=== PATIENT | female | born 1970 | race Caucasian/White ===

== ENCOUNTER 2022-05-03 10:58 | Day surgery (SDC) | payer BC ==
--- NOTE | 2022-05-03 10:22 | HP ---
DATE OF SURGERY: 05/03/2022 HISTORY OF PRESENT ILLNESS: The patient is a 52-year-old who is in need of screening colonoscopy. The patient has occasional flare ups of internal hemorrhoids, intermittent prolapse, aches and bleeding at times but not every day. No change in bowel movements. No abdominal pain. Family history negative for colon cancer. PAST MEDICAL HISTORY: Asthma. Mitral valve prolapse. Reflux disease. PAST SURGICAL HISTORY: section. Ovarian cyst. T&A. Foot surgery for bone spur on the right in the past. MEDICATIONS: Flonase, cetirizine, phentermine. ALLERGIES: NKDA. FAMILY HISTORY: Chronic obstructive pulmonary disease, diabetes, hypertension. Negative for colon cancer. SOCIAL HISTORY: No smoking. She does drink some wine. REVIEW OF SYSTEMS: Fourteen systems reviewed. No chest pain or palpitations. Other systems negative or noncontributory as above and per preadmission questionnaire. PHYSICAL EXAMINATION: BMI 30. GENERAL: No acute distress. HEENT: Sclerae nonicteric. NECK: No JVD. CHEST: Clear to auscultation. CVS: Regular rate and rhythm. ABDOMEN: Soft. No peritoneal signs. EXTREMITIES: No significant edema. NEURO: Alert, oriented, moving extremities symmetrically. RECTAL: Deferred timed to endoscopy exam. PSYCH: Appropriate mood and affect. SKIN: Dry. IMPRESSION: Need for screening colonoscopy as she had intermittent prolapse and possible internal hemorrhoid banding as she had failed to control that with medical management. General risk of bleeding or infection, risk of bowel injury or perforation, risk of missed or nondiagnosis or incomplete exam possibly requiring barium enema, other studies or procedures, general risk of anesthesia or sedation, risk of bowel prep but not limited to, consent obtained. Possibility if she does have internal hemorrhoids that warrant internal hemorrhoid banding, general risk of bleeding or infection, aches, pain or pressure. Remote risk of major infection possibly requiring major procedure, drainage or diversion. Possibility of progression of hemorrhoid disease possibly requiring other procedures down the road but not limited to. General risk of bleeding. Consent obtained. Will proceed with outpatient screening colonoscopy. Will proceed with screening colonoscopy, possible internal hemorrhoid banding as an outpatient.
[2022-05-03] MEDS ORDERED: Lactated Ringers 1,000 ML IV SCH (11:00)
[2022-05-03] MEDS ORDERED: Xylocaine-Mpf 2% 5 Ml Vial ONE (13:34)
[2022-05-03] MEDS ORDERED: DIPRIVAN 200 MG/20 ML IV ONE ×3 (13:35→14:03)
[2022-05-03] MEDS ORDERED: ULTRAM 50 MG PO ONE (15:17)
[2022-05-03 15:22] VITALS: O2SAT 99
[2022-05-03 15:43] VITALS: BP 126/79; PULSE 71
--- NOTE | 2022-05-04 08:44 | OP ---
SURGERY DATE/TIME: 05/03/2022 2758 PREOPERATIVE DIAGNOSES: 1) Need for screening colonoscopy. 2) History of some intermittent prolapsing, occasionally bleeding internal hemorrhoids. POSTOPERATIVE DIAGNOSES: 1) ASA Class II. 2) Mild diverticulosis left colon. 3) Small early polyp versus hyperplastic lesion sigmoid and rectum. 4) Grade 2 to almost 3 internal and external hemorrhoids. 5) Withdrawal time approximately 9 minutes. 6) Very tortuous colon. PROCEDURES: 1) Colonoscopy to cecum. 2) Hot biopsy polypectomy sigmoid colon polyp. 3) Hot biopsy polypectomy small early rectal polyp versus hyperplastic lesion. 4) Internal hemorrhoid banding x3 columns. SURGEON: Dr. Mario Ospina. ANESTHESIA: MAC. ESTIMATED BLOOD LOSS: Minimal. INDICATIONS: As noted above. Risks and benefits explained in detail but not limited to and consent obtained. DESCRIPTION OF PROCEDURE AND FINDINGS: The patient is taken to the endoscopy room. MAC anesthesia induced. After official time out and no disagreement with planned procedure, digital rectal exam did not reveal any rectal masses. She did have some internal and external hemorrhoids. Video colonoscope inserted and passed up the tortuous sigmoid, descending, transverse, ascending colon. With positioning on her back and two people pushing on the abdomen, the scope did reach the cecum. Appendiceal orifice and ileocecal valve well visualized and photo documented. Pre overall was good. There was a little bit of liquidy stool limiting the right colon. It was suctioned irrigated clear just slightly limiting exam otherwise overall good prep. The scope was carefully withdrawn over the next 9 minutes. No signs of any large polyps, masses or any other obstructing lesions. She did have some mild diverticulosis left colon. There was a small polyp in the sigmoid colon that was smooth about 2 mm removed with hot biopsy polypectomy. Another 1.5 mm to 2 mm polyp in the rectum, early polyp versus hyperplastic lesion removed with hot biopsy polypectomy. Good hemostasis was noted. Once this was completed, she inquired about possible hemorrhoid banding. It was felt that her hemorrhoids were grade 2 almost grade 3 internal and external hemorrhoids. Half-ayala retractor carefully inserted. Hemorrhoid band fired on the left lateral position. A good tuft of tissue noted at top edge of hemorrhoid, this was then repeated in the right posterior position. The right anterior was a little bit smaller but a good tuft of tissue was noted at the top edge of the hemorrhoid, hemorrhoid band fired. Good hemostasis noted. The patient tolerated the procedure well. Findings discussed with the family out in the waiting area. Continue a high fiber diet, avoid straining at the time of bowel movements, titrate soft bulky stools. Use sitz baths PRN for any aches or pains or Tylenol for aches and pains.
== END 2022-05-03 15:50 | disposition home or self-care (01) ==
LOC: SDC 10:58
PROVIDERS: ATTEND Surgery
DX: Z12.11 Encounter for screening for malignant neoplasm of colon (principal); Z87.19 Personal history of other diseases of the digestive system; K57.30 Diverticulosis of large intestine without perforation or abscess without bleeding; K63.5 Polyp of colon; K64.4 Residual hemorrhoidal skin tags; K64.8 Other hemorrhoids
CPT/HCPCS: 81025; J2704; A9270-GY

== ENCOUNTER 2022-06-16 10:42 | Emergency (ER) | payer BC ==
[2022-06-16] MEDS ORDERED: Hydromorphone 1 mg/ml Injection IV ONE (10:50)
[2022-06-16] MEDS ORDERED: BENADRYL 50 MG/ML IV ONE (10:50)
[2022-06-16] MEDS ORDERED: Sodium Chloride 0.9% 1000 ML 1,000 ML IV STA (10:50)
[2022-06-16 10:52] VITALS: BP 150/101
[2022-06-16] MEDS ORDERED: Sodium Chloride 0.9% 1000 ML 1,000 ML ONE (10:55)
[2022-06-16] MEDS ORDERED: Hydromorphone 1 mg/ml Injection ONE (10:55)
[2022-06-16] MEDS ORDERED: BENADRYL 50 MG/ML ONE (10:55)
[2022-06-16 11:10] LABS: BASOPHIL % 0.7 % (0.0-0.4); IMMATURE GRAN # 0.03 x10^3u/L (0.00-0.03); Red Cell Distribution Width 13.4 % (11.5-14.0)
--- NOTE | 2022-06-16 11:18 | ERPHSYRPT ---
- History of Present Illness Time Seen by Provider: 06/16/22 10:47 Source: patient Exam Limitations: no limitations Patient Subjective Stated Complaint: Abdominal pain Triage Nursing Assessment: Patient brought back to ED per w/c crying out in pain . Patient A+O X 3. Patient's skin pale and diaphoretic. Patient complains of sharp pain to right lower abdomen 10/10. 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 Patient complains of nausea. Abdomen soft and round with BS X 4. Physician History: Patient here with sudden onset of right lower quadrant pain. 10 out of 10. Radiates into the rest of her abdomen. No falls or trauma. Patient states that she has been sick for a few days. Acutely got worse this morning. She has not tried thing to make it better or worse. Patient states that she still has her periods. Although she does not believe she is . Timing/Duration: today Severity: moderate Allergies/Adverse Reactions: meloxicam Adverse Reaction (Mild, Verified 06/16/22 10:46) Rash Home Medications: Cetirizine HCl [All Day Allergy Relief] 1 cap PO DAILY 04/30/22 [History] Fluticasone Propionate [Flonase Allergy Relief] 2 sprays INTRANASAL BID 04/30/22 [History] Phentermine HCl 1 tab PO DAILY 04/30/22 [History] Hx Influenza Vaccination/Date Given: No Hx Pneumococcal Vaccination/Date Given: No Immunizations Up to Date: Yes Travel Risk - International Travel Have you traveled outside of the country in past 3 weeks: No - Coronavirus Screening Are you exhibiting any of the following symptoms?: No Close contact with a COVID-19 positive Pt in past 14-21 Days: No - Vaccine Status Have you recieved a Covid-19 vaccination: Yes 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: [email or web address] - Vaccination Dates Date of 2cond Vaccination (if applicable): na - Review of Systems Constitutional: No Fever, No Chills Eyes: No Symptoms Ears, Nose, & Throat: No Symptoms Respiratory: No Cough, No Dyspnea Cardiac: No Chest Pain, No Edema, No Syncope Abdominal/Gastrointestinal: Abdominal Pain, No Nausea, No Vomiting, No Diarrhea Genitourinary Symptoms: No Dysuria Musculoskeletal: No Back Pain, No Neck Pain Skin: No Rash Neurological: No Dizziness, No Focal Weakness, No Sensory Changes Psychological: No Symptoms Endocrine: No Symptoms All Other Systems: Reviewed and Negative - Past Medical History Neurological History: No Pertinent History ENT History: No Pertinent History Cardiac History: Other Respiratory History: Asthma Endocrine Medical History: No Pertinent History Musculoskeletal History: No Pertinent History GI Medical History: No Pertinent History History: No Pertinent History Psycho-Social History: No Pertinent History Female Reproductive Disorders: No Pertinent History Other Medical History: mitral valve prolapse - Past Surgical History Past Surgical History: Yes Neuro Surgical History: No Pertinent History Cardiac: No Pertinent History Respiratory: No Pertinent History Musculoskeletal: Other Female Surgical History: Section, Other Other Surgical History: ovarian cyst, bone spur. - Social History Smoking Status: Never smoker Exposure to second hand smoke: No Drug Use: none Patient Lives Alone: No - Nursing Vital Signs Nursing Vital Signs: Initial Vital Signs Temperature 97.6 F 06/16/22 10:47 Pulse Rate 65 06/16/22 10:47 Respiratory Rate 18 06/16/22 10:47 Blood Pressure 150/101 06/16/22 10:47 O2 Sat by Pulse Oximetry 100 06/16/22 10:47 Pain Scale Pain Intensity 10 - Physical Exam General Appearance: no apparent distress, alert Eye Exam: PERRL/EOMI, eyes nml inspection Ears, Nose, Throat Exam: normal ENT inspection, TMs normal, pharynx normal, moist mucous membranes Neck Exam: normal inspection, non-tender, supple, full range of motion Respiratory Exam: normal breath sounds, lungs clear, No respiratory distress Cardiovascular Exam: regular rate/rhythm, normal heart sounds, normal peripheral pulses Gastrointestinal/Abdomen Exam: soft, tenderness (Right lower quadrant tenderness without rebound or guarding), No mass Back Exam: normal inspection, normal range of motion, No CVA tenderness, No v ertebral tenderness Extremity Exam: normal inspection, normal range of motion, pelvis stable Neurologic Exam: alert, oriented x 3, cooperative, normal mood/affect, nml cerebellar function, nml station & gait, sensation nml, No motor deficits Skin Exam: normal color, warm, dry, No rash Lymphatic Exam: No adenopathy SpO2: 100 - Course Nursing assessment & vital signs reviewed: Yes Ordered Tests: Active Orders 24 hr Category Date Time Status IV Insertion STAT Care 06/16/22 10:50 Active ABDOMEN AND PELVIS W CONTRAST [CT] Stat Exams 06/16/22 10:51 Completed CBC W DIFF Stat Lab 06/16/22 11:09 Completed CMP Stat Lab 06/16/22 Completed CULTURE,URINE Stat Lab 06/16/22 12:30 Received HCG QUALITATIVE,SERUM Stat Lab 06/16/22 11:09 Completed LIPASE Stat Lab 06/16/22 11:09 Completed UA W/RFX UR CULTURE Stat Lab 06/16/22 12:30 Completed Medication Summary Discontinued Medications Generic Name Dose Route Start Last Admin Trade Name Junior PRN Reason Stop Dose Admin Diphenhydramine HCl 25 mg 06/16/22 10:50 06/16/22 10:58 Diphenhydramine Hcl 50 Mg/Ml Vial IV 06/16/22 10:51 25 mg STAT ONE Administration Diphenhydramine HCl Confirm 06/16/22 10:55 Diphenhydramine Hcl 50 Mg/Ml Vial Administered 06/16/22 10:56 Dose 50 mg .ROUTE .STK-MED ONE Droperidol 1.25 mg 06/16/22 10:50 06/16/22 10:58 Droperidol 5 Mg/2 Ml Vial IV 06/16/22 10:51 1.25 mg STAT ONE Administration Droperidol Confirm 06/16/22 10:55 Droperidol 5 Mg/2 Ml Vial Administered 06/16/22 10:56 Dose 5 mg .ROUTE .STK-MED ONE Fentanyl Citrate 100 mcg 06/16/22 12:30 06/16/22 12:42 Fentanyl Citrate 100 Mcg/2 Ml* Vial IV 06/16/22 12:31 100 mcg STAT ONE Administration Fentanyl Citrate Confirm 06/16/22 12:41 Fentanyl Citrate 100 Mcg/2 Ml* Vial Administered 06/16/22 12:42 Dose 100 mcg .ROUTE .STK-MED ONE Hydromorphone HCl 1 mg 06/16/22 10:50 06/16/22 10:58 Hydromorphone 1 Mg/1ml Inj 1 Mg/Ml Syringe IV 06/16/22 10:51 1 mg STAT ONE Administration Hydromorphone HCl Confirm 06/16/22 10:55 Hydromorphone 1 Mg/1ml Inj 1 Mg/Ml Syringe Administered 06/16/22 10:56 Dose 1 mg .ROUTE .STK-MED ONE Sodium Chloride 1,000 mls @ 999 mls/hr 06/16/22 10:50 06/16/22 12:04 Sodium Chloride 0.9% 1000 Ml IV 06/16/22 11:50 Infused .Q1H1M STA Infusion Sodium Chloride Confirm 06/16/22 10:55 Sodium Chloride 0.9% 1000 Ml Administered 06/16/22 10:56 Dose 1,000 mls @ ud .ROUTE .STK-MED ONE Ketorolac Tromethamine 30 mg 06/16/22 12:43 06/16/22 12:46 Ketorolac Tromethamine 30 Mg/Ml Inj IV 06/16/22 12:44 30 mg STAT ONE Administration Ketorolac Tromethamine Confirm 06/16/22 12:46 Ketorolac Tromethamine 30 Mg/Ml Inj Administered 06/16/22 12:47 Dose 30 mg .ROUTE .STK-MED ONE Lab/Rad Data: Laboratory Result Diagrams 06/16/22 11:09 06/16/22 Unknown Laboratory Results 06/16/22 06/16/22 06/16/22 Range/Units Unknown 12:30 11:09 WBC (4.0-10.5) x10^3/uL RBC (4.1-5.4) x10^6/uL Hgb (12.0-16.0) g/dL Hct (35-47) % MCV (78-100) fL MCH (26-32) pg MCHC (32-36) g/dL RDW (11.5-14.0) % Plt Count (150-450) x10^3/uL MPV (7.5-11.0) fL Gran % (36.0-66.0) % Immature Gran % (Auto) (0.00-0.4) % Nucleat RBC Rel Count (0.00-0.1) % Eos # (Auto) (0-0.5) x10^3/uL Immature Gran # (Auto) (0.00-0.03) x10^3u/L Absolute Lymphs (auto) (1.0-4.6) x10^3/uL Absolute Monos (auto) (0.0-1.3) x10^3/uL Absolute Nucleated RBC (0.00-0.01) x10^3u/L Lymphocytes % (24.0-44.0) % Monocytes % (0.0-12.0) % Eosinophils % (0.00-5.0) % Basophils % (0.0-0.4) % Absolute Granulocytes (1.4-6.9) x10^3/uL Basophils # (0-0.4) x10^3/uL Sodium 139 (137-145) mmol/L Potassium 3.9 (3.5-5.1) mmol/L Chloride 108 H (98-107) mmol/L Carbon Dioxide 20 L (22-30) mmol/L Anion Gap 14.8 (5-15) MEQ/L BUN 16 (7-17) mg/dL Creatinine 1.02 (0.52-1.04) mg/dL Estimated GFR > 60.0 ML/MIN Glucose 114 H (74-106) mg/dL Calcium 8.8 (8.4-10.2) mg/dL Total Bilirubin 0.40 (0.2-1.3) mg/dL AST 29 (14-36) U/L ALT 20 (0-35) U/L Alkaline Phosphatase 54 (38-126) U/L Serum Total Protein 6.4 (6.3-8.2) g/dL Albumin 3.9 (3.5-5.0) g/dL Lipase (23-300) U/L Serum , Qual NEGATIVE (Negative) Urine Color Yellow (Yellow) Urine Appearance Clear (Clear) Urine pH 6.5 (4.6-8.0) Ur Specific [place] 1.020 (1.005-1.030) Urine Protein Negative (Negative) Urine Glucose (UA) Negative (Negative) mg/dL Urine Ketones 15 A (Negative) Urine Blood Negative (Negative) Urine Nitrite Negative (Negative) Urine Bilirubin Negative (Negative) Urine Urobilinogen 0.2 (0.2) mg/dL Ur Leukocyte Esterase Trace A (Negative) U Hyaline Cast (Auto) NONE SEEN (0-2) /LPF Urine Microscopic RBC 0-2 (0-5) /HPF Urine Microscopic WBC 11-20 A (0-5) /HPF Ur Epithelial Cells None Seen (None Seen) /HPF Urine Bacteria None Seen (None Seen) /HPF Urine Culture Reflexed YES (NO) 06/16/22 06/16/22 Range/Units 11:09 11:09 WBC 10.2 (4.0-10.5) x10^3/uL RBC 4.04 L (4.1-5.4) x10^6/uL Hgb 11.3 L (12.0-16.0) g/dL Hct 36.3 (35-47) % MCV 89.9 (78-100) fL MCH 28.0 (26-32) pg MCHC 31.1 L (32-36) g/dL RDW 13.4 (11.5-14.0) % Plt Count 330 (150-450) x10^3/uL MPV 9.5 (7.5-11.0) fL Gran % 70.6 H (36.0-66.0) % Immature Gran % (Auto) 0.3 (0.00-0.4) % Nucleat RBC Rel Count 0.0 (0.00-0.1) % Eos # (Auto) 0.13 (0-0.5) x10^3/uL Immature Gran # (Auto) 0.03 (0.00-0.03) x10^3u/L Absolute Lymphs (auto) 2.07 (1.0-4.6) x10^3/uL Absolute Monos (auto) 0.69 (0.0-1.3) x10^3/uL Absolute Nucleated RBC 0.00 (0.00-0.01) x10^3u/L Lymphocytes % 20.3 L (24.0-44.0) % Monocytes % 6.8 (0.0-12.0) % Eosinophils % 1.3 (0.00-5.0) % Basophils % 0.7 (0.0-0.4) % Absolute Granulocytes 7.20 H (1.4-6.9) x10^3/uL Basophils # 0.07 (0-0.4) x10^3/uL Sodium (137-145) mmol/L Potassium (3.5-5.1) mmol/L Chloride (98-107) mmol/L Carbon Dioxide (22-30) mmol/L Anion Gap (5-15) MEQ/L BUN (7-17) mg/dL Creatinine (0.52-1.04) mg/dL Estimated GFR ML/MIN Glucose (74-106) mg/dL Calcium (8.4-10.2) mg/dL Total Bilirubin (0.2-1.3) mg/dL AST (14-36) U/L ALT (0-35) U/L Alkaline Phosphatase (38-126) U/L Serum Total Protein (6.3-8.2) g/dL Albumin (3.5-5.0) g/dL Lipase 136 (23-300) U/L Serum , Qual (Negative) Urine Color (Yellow) Urine Appearance (Clear) Urine pH (4.6-8.0) Ur Specific [place] (1.005-1.030) Urine Protein (Negative) Urine Glucose (UA) (Negative) mg/dL Urine Ketones (Negative) Urine Blood (Negative) Urine Nitrite (Negative) Urine Bilirubin (Negative) Urine Urobilinogen (0.2) mg/dL Ur Leukocyte Esterase (Negative) U Hyaline Cast (Auto) (0-2) /LPF Urine Microscopic RBC (0-5) /HPF Urine Microscopic WBC (0-5) /HPF Ur Epithelial Cells (None Seen) /HPF Urine Bacteria (None Seen) /HPF Urine Culture Reflexed (NO) - Progress Progress: improved Progress Note: 06/16/22 11:17 differential diagnosis includes kidney stone, compression fracture, infection, UTI, triple AAA - basic labs including: CBC, lipase, CMP, UA, UPT - insert IV for fluids, pain meds, nausea control - consider imaging: CT ab/pelvis 06/16/22 13:36 Patient feels improved with medication. Patient is not . CT scan demonstrates kidney stone 3 to 4 mm right UVJ. Consistent with patient's pain. We did discuss over the phone with urology at [facility], NERY Murphy. She stated that given patient has no UTI, pain improved, no VEE, patient could follow-up as an outpatient. Patient is making urine. No fever here. No signs of pyelonephritis or other infection. We will discharge patient home at this point in time. Patient will need to return here sooner for new or changing symptoms. Otherwise follow-up as described on Flomax, Toradol, Zofran, Flexeril. Counseled pt/family regarding: lab results, diagnosis, need for follow-up, rad results - Departure Departure Disposition: Home Clinical Impression: Kidney stone Condition: Stable Critical Care Time: No Referrals: REINTJES,FABIANA, SHEET TESTER [Primary Care Provider] - Follow up/PCP as directed Instructions: Severe Abdominal Pain, Adult (DC) Additional Instructions: Call for urology appointment early next week. Return here sooner for new or changing symptoms. We spoke with NERY Gonzalez about your case [facility] [address] [place] [address] [place] [id number] Prescriptions: Ondansetron ODT 4 MG [Zofran Odt 4 mg] 4 mg PO Q6H PRN PRN #10 tablet PRN Reason: Vomiting Cyclobenzaprine HCl 10 mg [Flexeril 10 MG] 10 mg PO TID #12 tablet Tamsulosin HCl 0.4 mg [Flomax 0.4 MG] 0 mg PO DAILY 10 Days #10 cap Ketorolac Trometh 10 mg Tab [TORAdol 10 MG TABLET] 10 mg PO TID PRN 7 Days #8 tablet PRN Reason: Pain
[2022-06-16 11:42] LABS: Hematocrit 36.3 % (35-47); Hemoglobin 11.3 g/dL (12.0-16.0); Red Blood Count 4.04 x10^6/uL (4.1-5.4); White Blood Count 10.2 x10^3/uL (4.0-10.5)
[2022-06-16 11:43] LABS: Eosinophil % 1.3 % (0.00-5.0); Lymphocytes % 20.3 % (24.0-44.0); Mean Cell Volume 89.9 fL (78-100); Mean Corpuscular Hgb Concent. 31.1 g/dL (32-36); Mean Platelet Volume 9.5 fL (7.5-11.0); Monocytes % 6.8 % (0.0-12.0); Neutrophil % 70.6 % (36.0-66.0); Platelet Count 330 x10^3/uL (150-450)
[2022-06-16 11:44] LABS: Basophil (Absolute #) 0.07 x10^3/uL (0-0.4); Eosinophil (Absolute #) 0.13 x10^3/uL (0-0.5); IMMATURE GRAN % 0.3 % (0.00-0.4); Lymphocyte (Absolute #) 2.07 x10^3/uL (1.0-4.6); Monocyte (Absolute #) 0.69 x10^3/uL (0.0-1.3)
[2022-06-16] MEDS ORDERED: SUBLIMAZE 100 MCG/2 ML IV ONE (12:30)
--- NOTE | 2022-06-16 12:35 | XRAY ---
Indication: Right upper quadrant pain. Multiple contiguous axial images obtained through the abdomen and pelvis using 80 cc Isovue 370 contrast. Comparison: None Lung bases demonstrates minimal dependent atelectasis and a few right infrahilar/right middle lobe calcified granulomas. Heart is not enlarged. Noncontrasted stomach and bowel loops appear nonobstructed with normal appendix. Mild diffuse scattered fecal debris. No free fluid/air. 3-4 mm right UVJ calculus. Right ureter is prominent up to 1 cm along with mild hydronephrosis, dense right nephrogram, and tiny perinephric fluid favoring obstructive uropathy. Remaining over, gallbladder, pancreas, spleen, adrenal glands, left kidney, left ureter, bladder, uterus, and aorta are unremarkable. No pathologic retroperitoneal lymphadenopathy. Osseous structures intact with mild levoscoliosis centered at L3. Impression: 1. 3-4 mm right UVJ calculus producing obstructive uropathy as detailed. 2. Incidental mild diffuse fecal stasis and old granulomatous disease. 3. Remaining CT abdomen/pelvis with contrast exam is negative.
[2022-06-16 12:40] LABS: ALBUMIN 3.9 g/dL (3.5-5.0); ALKALINE PHOSPHATASE 54 U/L (38-126); ANION GAP 14.8 MEQ/L (5-15); BLOOD UREA NITROGEN 16 mg/dL (7-17); CHLORIDE 108 mmol/L (98-107); Calcium 8.8 mg/dL (8.4-10.2); Carbon Dioxide 20 mmol/L (22-30); Creatinine 1 1.02 mg/dL (0.52-1.04); EST GLOMERULAR FILTRATION RATE > 60.0 ML/MIN; Glucose 114 mg/dL (74-106); Potassium 3.9 mmol/L (3.5-5.1); SGOT/AST 29 U/L (14-36); SGPT/ALT 20 U/L (0-35); SODIUM 139 mmol/L (137-145); Total Protein 6.4 g/dL (6.3-8.2)
[2022-06-16] MEDS ORDERED: SUBLIMAZE 100 MCG/2 ML ONE (12:41)
[2022-06-16] MEDS ORDERED: TORAdol 30 mg Injection IV ONE (12:43)
[2022-06-16 12:44] LABS: Appearance Clear (Clear); Bacteria None Seen /HPF (None Seen); Bilirubin Negative (Negative); Blood Negative (Negative); Epithelial Cells None Seen /HPF (None Seen); Glucose, Urine Negative (Negative); Hyaline Casts NONE SEEN /LPF (0-2); Ketones 15 (Negative); Leukocyte Esterase Trace (Negative); Nitrite Negative (Negative); Ph 6.5 (4.6-8.0); Protein,Urine Dip Negative (Negative); RBC 0-2 /HPF (0-5); Urobilinogen 0.2 mg/dL (0.2)
[2022-06-16 12:46] LABS: ADD URINE CULTURE? YES (NO)
[2022-06-16] MEDS ORDERED: TORAdol 30 mg Injection ONE (12:46)
[2022-06-16 13:37] VITALS: PULSE 88
[2022-06-16 13:38] VITALS: O2SAT 100
== END 2022-06-16 13:43 | disposition home or self-care (01) ==
LOC: ED 10:42
DX: N13.2 Hydronephrosis with renal and ureteral calculous obstruction (principal); R10.31 Right lower quadrant pain; Z79.899 Other long term (current) drug therapy
CPT/HCPCS: 36000; 36415; 74177; 80053; 81001; 83690; 84703; 85025; 87077; 87086; 87186; 96360; 96374; 96375; 99284; J1170; J1200; J1885; J3010

== ENCOUNTER 2023-03-25 16:20 | Emergency (ER) | payer BC ==
[2023-03-25 16:45] VITALS: TEMP 98.5
[2023-03-25] MEDS ORDERED: Sodium Chloride 0.9% 1000 ML 1,000 ML IV STA ×2 (17:01→19:20)
[2023-03-25] MEDS ORDERED: Hydromorphone 1 mg/ml Injection IV ONE (17:01)
[2023-03-25] MEDS ORDERED: Reglan 10 MG/2 ML IV ONE (17:01)
[2023-03-25] MEDS ORDERED: Reglan 10 MG/2 ML ONE (17:07)
[2023-03-25] MEDS ORDERED: Hydromorphone 1 mg/ml Injection ONE (17:07)
[2023-03-25] MEDS ORDERED: Sodium Chloride 0.9% 1000 ML 1,000 ML ONE ×2 (17:07→19:21)
[2023-03-25 17:25] LABS: Absolute Neutrophil Ct (ANC) 10.12 x10^3/uL (1.4-6.9); BASOPHIL % 0.4 % (0.0-0.4); Basophil (Absolute #) 0.05 x10^3/uL (0-0.4); Eosinophil % 0.8 % (0.00-5.0); Hematocrit 32.6 % (35-47); Hemoglobin 10.4 g/dL (12.0-16.0); IMMATURE GRAN # 0.04 x10^3u/L (0.00-0.03); IMMATURE GRAN % 0.3 % (0.00-0.4); Lymphocyte (Absolute #) 0.91 x10^3/uL (1.0-4.6); Lymphocytes % 7.6 % (24.0-44.0); Mean Cell Volume 93.4 fL (78-100); Mean Corpuscular Hemoglobin 29.8 pg (26-32); Mean Corpuscular Hgb Concent. 31.9 g/dL (32-36); Mean Platelet Volume 9.8 fL (7.5-11.0); Monocyte (Absolute #) 0.71 x10^3/uL (0.0-1.3); Neutrophil % 84.9 % (36.0-66.0); Platelet Count 377 x10^3/uL (150-450); Red Blood Count 3.49 x10^6/uL (4.1-5.4); Red Cell Distribution Width 13.5 % (11.5-14.0); White Blood Count 11.9 x10^3/uL (4.0-10.5)
[2023-03-25 17:38] LABS: ALBUMIN 4.1 g/dL (3.5-5.0); ANION GAP 12.6 MEQ/L (5-15); BILIRUBIN,TOTAL 0.2 mg/dL (0.2-1.3); Calcium 9.5 mg/dL (8.4-10.2); Creatinine 1 1.22 mg/dL (0.52-1.04); EST GLOMERULAR FILTRATION RATE 53.7 ML/MIN; Potassium 3.6 mmol/L (3.5-5.1)
[2023-03-25 18:07] LABS: HCG URINE TEST NEGATIVE (NEGATIVE)
--- NOTE | 2023-03-25 19:02 | ERPHSYRPT ---
- History of Present Illness Time Seen by Provider: 03/25/23 16:45 Historian: patient Exam Limitations: no limitations Patient Subjective Stated Complaint: Left sided flank pain (nephrostomy) Triage Nursing Assessment: Patient brought into ED per w/c and transferred self to bed. Patient A+O X 3. Patient's skin pink, warm and dry. Patient complains of left sided flank pain that started earlier today. Patient has left nephrostomy tube that isn't producing urine. Patient states she is having pain and pressure to nephrostomy site. Nephrostomy bag noted to not have any urine noted. Physician History: And is a 53-year-old female who had surgery for a ruptured colon during that surgery she had apparently suffered a neck to the left ureter. She was taken to surgery and nephrostomy tube was placed and she is scheduled to be reanastomosed soon. She feels pressure in the left flank and has noted decreased drainage i nto the nephrostomy bag. Timing/Duration: today Activities at Onset: none Quality: aching, pressure Abdominal Pain Onset Location: flank (Left flank) Allergies/Adverse Reactions: meloxicam Adverse Reaction (Mild, Verified 03/25/23 16:33) Rash Home Medications: Cetirizine HCl [All Day Allergy Relief] 1 cap PO DAILY 04/30/22 [History] Fluticasone Propionate [Flonase Allergy Relief] 2 sprays INTRANASAL BID 04/30/22 [History] Phentermine HCl 1 tab PO DAILY 04/30/22 [History] Hx Influenza Vaccination/Date Given: Yes Hx Pneumococcal Vaccination/Date Given: No Immunizations Up to Date: Yes Travel Risk - International Travel Have you traveled outside of the country in past 3 weeks: No - Coronavirus Screening Are you exhibiting any of the following symptoms?: No Close contact with a COVID-19 positive Pt in past 14-21 Days: No - Vaccine Status Have you recieved a Covid-19 vaccination: Yes [employer]: [place] - Vaccination Dates Date of 2cond Vaccination (if applicable): na - Review of Systems Constitutional: No Fever, No Chills Eyes: No Symptoms Ears, Nose, & Throat: No Symptoms Respiratory: No Cough, No Dyspnea Cardiac: No Chest Pain, No Edema, No Syncope Abdominal/Gastrointestinal: No Abdominal Pain, No Nausea, No Vomiting, No Diarrhea Genitourinary Symptoms: Flank Pain, No Dysuria Musculoskeletal: No Back Pain, No Neck Pain Skin: No Rash Neurological: No Dizziness, No Focal Weakness, No Sensory Changes Psychological: No Symptoms Endocrine: No Symptoms All Other Systems: Reviewed and Negative - Past Medical History Neurological History: No Pertinent History ENT History: No Pertinent History Cardiac History: Other Respiratory History: Asthma Endocrine Medical History: No Pertinent History Musculoskeletal History: No Pertinent History GI Medical History: No Pertinent History History: Other Psycho-Social History: No Pertinent History Female Reproductive Disorders: No Pertinent History Other Medical History: mitral valve prolapse. Abdominal sugery for hole in colon. Left sided nephrostomy tube - Past Surgical History Past Surgical History: Yes Neuro Surgical History: No Pertinent History Cardiac: No Pertinent History Respiratory: No Pertinent History Musculoskeletal: Other Female Surgical History: Section, Other Other Surgical History: ovarian cyst, bone spur. - Social History Smoking Status: Never smoker Exposure to second hand smoke: No Drug Use: none Patient Lives Alone: No - Nursing Vital Signs Nursing Vital Signs: Initial Vital Signs Temperature 98.5 F 03/25/23 16:34 Pulse Rate 94 H 03/25/23 16:34 Respiratory Rate 18 03/25/23 16:34 Blood Pressure 190/108 03/25/23 16:34 O2 Sat by Pulse Oximetry 100 03/25/23 16:34 Pain Scale Pain Intensity 5 - Physical Exam General Appearance: no apparent distress, alert Eye Exam: PERRL/EOMI, eyes nml inspection Ears, Nose, Throat Exam: normal ENT inspection, pharynx normal, moist mucous membranes Neck Exam: normal inspection, non-tender, supple, full range of motion Respiratory Exam: normal breath sounds, lungs clear, No respiratory distress Cardiovascular Exam: regular rate/rhythm, normal heart sounds Gastrointestinal/Abdomen Exam: soft, No tenderness, No mass Back Exam: normal inspection, normal range of motion, other (A nephrostomy tube is noted to be placed in the left back CVA area there is minimal fluid in the bag there is however tube in the fluid in the tube. It appears clear.), No CVA tenderness, No vertebral tenderness Extremity Exam: normal inspection, normal range of motion, pelvis stable Neurologic Exam: alert, oriented x 3, cooperative, normal mood/affect, nml cerebellar function, sensation nml, No motor deficits Skin Exam: normal color, warm, dry SpO2 Interpretation: normal SpO2: 98 O2 Delivery: Room Air - CT Exams Abdomen/Pelvis CT Interpretation: Other (CT scan demonstrated the tube was in the kidney.) Ordered Tests: Active Orders 24 hr Category Date Time Status IV Insertion STAT Care 03/25/23 17:01 Active ABDOMEN AND PELVIS W CONTRAST [CT] Stat Exams 03/25/23 17:02 Taken CBC W DIFF Stat Lab 03/25/23 17:05 Completed CMP Stat Lab 03/25/23 17:05 Completed CULTURE,URINE Stat Lab 03/25/23 17:00 Received HCG QUALITATIVE, URINE Stat Lab 03/25/23 Completed LIPASE Stat Lab 03/25/23 17:05 Completed Lactic Acid Stat Lab 03/25/23 17:01 Completed UA W/RFX UR CULTURE Stat Lab 03/25/23 17:26 Ordered Medication Summary Discontinued Medications Generic Name Dose Route Start Last Admin Trade Name Freq PRN Reason Stop Dose Admin Hydromorphone HCl 1 mg 03/25/23 17:01 03/25/23 17:11 Hydromorphone 1 Mg/1ml Inj IV 03/25/23 17:02 1 mg STAT ONE Administration Hydromorphone HCl Confirm 03/25/23 17:07 Hydromorphone 1 Mg/1ml Inj Administered 03/25/23 17:08 Dose 1 mg .ROUTE .STK-MED ONE Sodium Chloride 1,000 mls @ 999 mls/hr 03/25/23 17:01 03/25/23 18:13 Sodium Chloride 0.9% 1000 Ml IV 03/25/23 18:01 Infused .Q1H1M STA Infusion Sodium Chloride Confirm 03/25/23 17:07 Sodium Chloride 0.9% 1000 Ml Administered 03/25/23 17:08 Dose 1,000 mls @ ud .ROUTE .STK-MED ONE Metoclopramide HCl 10 mg 03/25/23 17:01 03/25/23 17:11 Metoclopramide Hcl 10 Mg/2 Ml Vial IV 03/25/23 17:02 10 mg STAT ONE Administration Metoclopramide HCl Confirm 03/25/23 17:07 Metoclopramide Hcl 10 Mg/2 Ml Vial Administered 03/25/23 17:08 Dose 10 mg .ROUTE .STK-MED ONE Lab/Rad Data: Laboratory Result Diagrams 03/25/23 17:05 03/25/23 17:05 Laboratory Results 03/25/23 03/25/23 03/25/23 Range/Units Unknown 17:05 17:05 WBC 11.9 H (4.0-10.5) x10^3/uL RBC 3.49 L (4.1-5.4) x10^6/uL Hgb 10.4 L (12.0-16.0) g/dL Hct 32.6 L (35-47) % MCV 93.4 (78-100) fL MCH 29.8 (26-32) pg MCHC 31.9 L (32-36) g/dL RDW 13.5 (11.5-14.0) % Plt Count 377 (150-450) x10^3/uL MPV 9.8 (7.5-11.0) fL Gran % 84.9 H (36.0-66.0) % Immature Gran % (Auto) 0.3 (0.00-0.4) % Nucleat RBC Rel Count 0.0 (0.00-0.1) % Eos # (Auto) 0.10 (0-0.5) x10^3/uL Immature Gran # (Auto) 0.04 H (0.00-0.03) x10^3u/L Absolute Lymphs (auto) 0.91 L (1.0-4.6) x10^3/uL Absolute Monos (auto) 0.71 (0.0-1.3) x10^3/uL Absolute Nucleated RBC 0.00 (0.00-0.01) x10^3u/L Lymphocytes % 7.6 L (24.0-44.0) % Monocytes % 6.0 (0.0-12.0) % Eosinophils % 0.8 (0.00-5.0) % Basophils % 0.4 (0.0-0.4) % Absolute Granulocytes 10.12 H (1.4-6.9) x10^3/uL Basophils # 0.05 (0-0.4) x10^3/uL Sodium 137 (137-145) mmol/L Potassium 3.6 (3.5-5.1) mmol/L Chloride 105 (98-107) mmol/L Carbon Dioxide 22 (22-30) mmol/L Anion Gap 12.6 (5-15) MEQ/L BUN 31 H (7-17) mg/dL Creatinine 1.22 H (0.52-1.04) mg/dL Estimated GFR 53.7 ML/MIN Glucose 158 H (74-106) mg/dL Lactic Acid (0.4-2.0) Calcium 9.5 (8.4-10.2) mg/dL Total Bilirubin 0.20 (0.2-1.3) mg/dL AST 25 (14-36) U/L ALT 21 (0-35) U/L Alkaline Phosphatase 55 (38-126) U/L Serum Total Protein 7.0 (6.3-8.2) g/dL Albumin 4.1 (3.5-5.0) g/dL Lipase 183 (23-300) U/L Urine HCG, Qual NEGATIVE (NEGATIVE) 03/25/23 Range/Units 17:01 WBC (4.0-10.5) x10^3/uL RBC (4.1-5.4) x10^6/uL Hgb (12.0-16.0) g/dL Hct (35-47) % MCV (78-100) fL MCH (26-32) pg MCHC (32-36) g/dL RDW (11.5-14.0) % Plt Count (150-450) x10^3/uL MPV (7.5-11.0) fL Gran % (36.0-66.0) % Immature Gran % (Auto) (0.00-0.4) % Nucleat RBC Rel Count (0.00-0.1) % Eos # (Auto) (0-0.5) x10^3/uL Immature Gran # (Auto) (0.00-0.03) x10^3u/L Absolute Lymphs (auto) (1.0-4.6) x10^3/uL Absolute Monos (auto) (0.0-1.3) x10^3/uL Absolute Nucleated RBC (0.00-0.01) x10^3u/L Lymphocytes % (24.0-44.0) % Monocytes % (0.0-12.0) % Eosinophils % (0.00-5.0) % Basophils % (0.0-0.4) % Absolute Granulocytes (1.4-6.9) x10^3/uL Basophils # (0-0.4) x10^3/uL Sodium (137-145) mmol/L Potassium (3.5-5.1) mmol/L Chloride (98-107) mmol/L Carbon Dioxide (22-30) mmol/L Anion Gap (5-15) MEQ/L BUN (7-17) mg/dL Creatinine (0.52-1.04) mg/dL Estimated GFR ML/MIN Glucose (74-106) mg/dL Lactic Acid 1.4 (0.4-2.0) Calcium (8.4-10.2) mg/dL Total Bilirubin (0.2-1.3) mg/dL AST (14-36) U/L ALT (0-35) U/L Alkaline Phosphatase (38-126) U/L Serum Total Protein (6.3-8.2) g/dL Albumin (3.5-5.0) g/dL Lipase (23-300) U/L Urine HCG, Qual (NEGATIVE) - Progress Progress: improved Progress Note: 03/25/23 20:08 We did contact urology spoke to the urologist on-call who recommended attempting to flush the tube with sterile water we were able to accomplish that task after pushing 3 cc of urine and a 10 cc syringe we were able to aspirate the entire 10 cc. And immediately there was marked flow of urine from the nephrostomy tube. Medical Desision Making - Discussion of managment Care discussed with:: specialist ( urology) Agreed on:: Treatment plan (Treatment plan was to flush the nephrostomy tube with sterile water. The flushing was successful and copious amounts of urine began to flow from the urostomy tube.) - Diagnostic Testing Diagnostic test were ordered, analyzed, and reviewed by me: Yes Radiological Interpretation: Reviewed by me - Departure Departure Disposition: Home Clinical Impression: Obstructed nephrostomy tube Condition: Stable Critical Care Time: No Referrals: FABIANA LIZ NP [Primary Care Provider] - Follow up/PCP as directed Instructions: Flank Pain
[2023-03-25 19:30] VITALS: BP 160/92; PULSE 86; RESP 20
[2023-03-25 19:45] VITALS: O2SAT 98
--- NOTE | 2023-03-25 20:12 | XRAY ---
CLINICAL HISTORY:pain COMPARISON:Prior CT dated 06/16/2022 TECHNIQUE:A CT scan of the abdomen and pelvis was performed with IV contrast. Coronal and sagittal reconstructive images were also obtained. CTDI 30.19 mGy, DLP 1689.74 mGycm FINDINGS: There is evidence of a left-sided nephrostomy tube in place with moderate hydronephroureter traced up till the middle one-third of the ureter opposite the L5 vertebra. There is non-excretion of contrast from the left kidney on delayed images with surrounding perinephric fat stranding. A small calculus is seen at the lower pole of the left kidney measuring about 2.9 mm. The right pelvicalyceal system appears normal with no evidence of any wilder hydronephroureter or ureteric stone. The urinary bladder is adequately filled, and appears normal. Multiple tiny phleboliths are seen in the pelvis. The liver is normal in size. No focal or diffuse parenchymal abnormality. The portal vein, intrahepatic biliary radicals, and the bile ducts are normal. The spleen, pancreas, and adrenals are unremarkable.The gallbladder appears contracted. No pericholecystic collection or radio-dense calculi in the gall bladder. Fecal-loaded dilated ascending and transverse colon is seen. No bowel dilatation. Normal appearing appendix. There is no evidence of significant enlargement of the mesenteric or retroperitoneal lymph nodes. The uterus appears normal. Suggestion of right ovarian cyst measuring about 21 X 25 mm. No evidence of pneumoperitoneum or air-fluid levels is appreciated. Periumbilical hernia within the diastases recti containing large bowel loop. No evidence of significant pelvic lymphadenopathy. The osseous structures in the pelvis, lower rib cage, and lumbar spine show no abnormality. No lytic or sclerotic bone lesions. Slices through the lower chest show a tiny calcified granuloma in the lateral segment of the right middle lobe. IMPRESSION: 1. Left-sided nephrostomy tube in place with moderate hydronephroureter traced up til the middle one-third of the ureter with non-excretion of contrast and significant perirenal fat stranding. Interval new finding. 2. Left-sided small renal calculus. Stable finding. 3. Periumbilical hernia within the diastases recti containing large bowel loop. Interval new finding. 4. The rest of the findings as detailed above. Electronically Signed by: Laura Alberts MD. (03/25/2023 20:08:19 EST)
[2023-03-25 20:15] LABS: Appearance Clear (Clear); Bacteria None Seen /HPF (None Seen); Bilirubin Negative (Negative); Blood Large (Negative); Epithelial Cells None Seen /HPF (None Seen); Glucose, Urine Negative (Negative); Hyaline Casts NONE SEEN /LPF (0-2); Ketones Negative (Negative); Leukocyte Esterase Negative (Negative); Nitrite Negative (Negative); Protein,Urine Dip Negative (Negative); RBC >100 /HPF (0-5); Specific Gravity >=1.030 (1.005-1.030); Urobilinogen 0.2 mg/dL (0.2); WBC 0-2 /HPF (0-5)
[2023-03-25 20:19] LABS: ADD URINE CULTURE? ORDERED SEPARATELY (NO)
== END 2023-03-25 20:58 | disposition home or self-care (01) ==
LOC: ED 16:20
DX: T83.092A Other mechanical complication of nephrostomy catheter, initial encounter (principal); R33.8 Other retention of urine; R10.9 Unspecified abdominal pain; Z79.899 Other long term (current) drug therapy
CPT/HCPCS: 36000; 36415; 74177; 80053; 81001; 81025; 83605; 83690; 85025; 87077; 87086; 87186; 96360; 96374; 96375; 99284; J1170

== ENCOUNTER 2023-04-09 14:35 | Emergency (ER) | payer BC ==
[2023-04-09 15:11] VITALS: BP 129/99; PULSE 92; RESP 16; TEMP 98; O2SAT 99
--- NOTE | 2023-04-09 15:18 | ERPHSYRPT ---
- History of Present Illness Time Seen by Provider: 04/09/23 15:14 Source: patient, family Exam Limitations: no limitations Patient Subjective Stated Complaint: Pt reports she was in hospital due to having abdominal surgery, she was in so much pain her legs were jerking and up against the footboard of the bed. Pt states she is unsure what she did but when she was experiencing the pain and her feet were hitting the footboard "I don't know what I did to it but I did something" saying it has been hurting since and continually worsening and is now unable to walk on it. Triage Nursing Assessment: Pt alert and oriented x3. Respirations easy/no nlabored. Skin w/p/d. Using crutches to keep weight off of foot. Pain location described as being bottom of foot. Minimal swelling noted. Physician History: Pt reports she was in hospital due to having abdominal surgery, she was in so much pain her legs were jerking and up against the footboard of the bed. Pt states she is unsure what she did but when she was experiencing the pain and her feet were hitting the footboard "I don't know what I did to it but I did something" saying it has been hurting since and continually worsening and is now unable to walk on it. Method of Injury: unknown Occurred: last week Quality: constant Severity of Pain-Max: moderate Severity of Pain-Current: moderate Lower Extremities Pain: foot: left Modifying Factors: Improves With: cold therapy Associated Symptoms: unable to bear weight Allergies/Adverse Reactions: meloxicam Adverse Reaction (Mild, Verified 04/09/23 15:01) Rash Home Medications: Cetirizine HCl [All Day Allergy Relief] 1 cap PO DAILY 04/30/22 [History] Fluticasone Propionate [Flonase Allergy Relief] 2 sprays INTRANASAL BID 04/30/22 [History] Phentermine HCl 1 tab PO DAILY 04/30/22 [History] Hx Tetanus, Diphtheria Vaccination/Date Given: Yes Hx Influenza Vaccination/Date Given: Yes Hx Pneumococcal Vaccination/Date Given: No Travel Risk - International Travel Have you traveled outside of the country in past 3 weeks: No - Coronavirus Screening Are you exhibiting any of the following symptoms?: No Close contact with a COVID-19 positive Pt in past 14-21 Days: No - Vaccine Status Have you recieved a Covid-19 vaccination: Yes Rn Operating Room: Pfizer - Vaccination Dates Date of 2cond Vaccination (if applicable): na - Review of Systems Constitutional: No Symptoms Eyes: No Symptoms Ears, Nose, & Throat: No Symptoms Respiratory: No Symptoms Cardiac: No Symptoms Abdominal/Gastrointestinal: No Symptoms Genitourinary Symptoms: No Symptoms Musculoskeletal: Joint Swelling Skin: No Symptoms Neurological: No Symptoms Psychological: No Symptoms - Past Medical History Neurological History: No Pertinent History ENT History: No Pertinent History Cardiac History: Other Respiratory History: Asthma Endocrine Medical History: No Pertinent History Musculoskeletal History: No Pertinent History GI Medical History: No Pertinent History History: Other Psycho-Social History: No Pertinent History Female Reproductive Disorders: No Pertinent History Other Medical History: mitral valve prolapse. Abdominal sugery for hole in colon. Left sided nephrostomy tube. ureter reimplantation. hernias - Past Surgical History Past Surgical History: Yes Neuro Surgical History: No Pertinent History Cardiac: No Pertinent History Respiratory: No Pertinent History Musculoskeletal: Other Female Surgical History: Section, Other Other Surgical History: ovarian cyst, bone spur. ureter reimplantation. hernia repair - Social History Smoking Status: Never smoker Exposure to second hand smoke: Yes (when she was a child) Drug Use: none Patient Lives Alone: No - Nursing Vital Signs Nursing Vital Signs: Initial Vital Signs Temperature 98 F 04/09/23 14:56 Pulse Rate 92 H 04/09/23 14:56 Respiratory Rate 16 04/09/23 14:56 Blood Pressure 129/99 04/09/23 14:56 O2 Sat by Pulse Oximetry 99 04/09/23 14:56 Pain Scale Pain Intensity 8 - Physical Exam General Appearance: no apparent distress Eyes, Ears, Nose, Throat Exam: normal ENT inspection Neck Exam: normal inspection Cardiovascular/Respiratory Exam: chest non-tender Gastrointestinal/Abdominal Exam: non-tender Back Exam: normal inspection Hips Exam: bilateral: non-tender Legs Exam: bilateral leg: non-tender Knees Exam: bilateral knee: non-tender Ankle Exam: bilateral ankle: non-tender Foot Exam: left foot: soft tissue tenderness, swelling SpO2: 99 - Course Nursing assessment & vital signs reviewed: Yes - Radiology Exams Foot X-ray Interpretation: Reviewed by me, Negative, No Fracture (soft tissue swelling) Ankle X-ray Interpretation: Reviewed by me, Negative Ordered Tests: Active Orders 24 hr Category Date Time Status ANKLE (3 VIEWS) Stat Exams 04/09/23 14:50 Ordered FOOT (MINIMUM 3 VIEWS) Stat Exams 04/09/23 14:50 Ordered - Progress Progress: unchanged, pain not gone completely Counseled pt/family regarding: diagnosis, need for follow-up, rad results Medical Desision Making - Independent Historian Additional History obtained from: Spouse - Diagnostic Testing Diagnostic test were ordered, analyzed, and reviewed by me: Yes Radiological Interpretation: Reviewed by me - Risk of complications Minimal Risk: Minimal risk of morbidity - Departure Departure Disposition: Home Clinical Impression: Contusion of left foot Qualifiers: Encounter type: initial encounter Qualified Code(s): S90.32XA - Contusion of left foot, initial encounter Condition: Stable Critical Care Time: No Referrals: FABIANA LIZ HSE MANAGER [Primary Care Provider] - Follow up/PCP as directed Instructions: Contusion (DC) Additional Instructions: Discharge/Care Plan LESLIE QUINN was seen on 04/09/23 in the Emergency Room. The patient was counseled regarding Diagnosis,Lab results, Imaging studies, need for follow up and when to return to the Emergency Room. Prescriptions given: Discharge Note I have spoken with the patient and/or caregivers. I have explained the patient's condition, diagnosis and treatment plan based on the information available to me at this time. I have answered the patient's and/or caregiver's questions and addressed any concerns. The patient and/or caregivers have as good understanding of the patient's diagnosis, condition and treatment plan as can be expected at this point. The vital signs have been stable. The patient's condition is stable and appropriate for discharge from the emergency department. The patient will pursue further outpatient evaluation with the primary care physician or other designated or consulting physician as outlined in the discharge instructions. The patient and/or caregivers are agreeable to this plan of care and follow-up instructions have been explained in detail. The patient and/or caregivers have received these instruction. The patient/and or caregivers are aware that any significant change in condition or worsening of symptoms should prompt an immediate return to this or the closest emergency department or call 911. LESLIE QUINN was seen on 04/09/23 n the Emergency Room. At that time you were treated for an emergent condition, during your visit Laboratory, Radiology and/or other procedures may have been ordered. It is very important that you follow-up with your Primary Care Physician FABIANA LIZ within the next 24- 48 hours to review your Emergency Room visit and the final results of testing that was ordered. Some test results such as Urine Cultures, Blood Cultures, and other cultures if ordered will not be finalized for 24-48 hours. If you do not have a Primary Care Provider please call the medical records department at [phone] ext [phone] to obtain a copy of your results or you may sign into our patient portal to obtain these results by visiting us @ [email or web address] and completing the following steps: 1. Click on the Patient Portal link 2. Click the Patient Self Enrollment Link to complete the enrollment form and entering your 3. Once the enrollment form is completed you will receive an email with a temporary ID and password at the email address you provided. 4. Next choose a user name and password. Your user name must be at least 4 characters long and your password must be at least 4 characters long. 5. Choose a security question from the list and provide your answer to the question. If you already have signed into the Health Portal you may access your Health Care Information 08/11 by the following steps: 1. Login to our website @ [email or web address] 2. Enter your original user name and password. FAQS The [facility] Health Portal is an online tool that contains your Lab Results, Radiology Reports, Visit History, Discharge Instructions and Health Summary Lab and Radiology Results will not be available for 72 hours on the portal. The Portal is a secure site, passwords are encryted and URLs are re-written so they cannot be copied and pasted. You and authorized family members are the only ones who can access your Portal. Also there is a timeout feature that protects your information if you leave the Portal page open. If you have technical difficulty please use the Contact Us link on the page this will allow you to submit any questions you have regarding the Portal or you may contact the Medical Record Department at [phone] ext [phone].
--- NOTE | 2023-04-09 21:02 | XRAY ---
Indication: Pain following injury. Comparison: None 3 view left ankle demonstrates tiny plantar heel spur and tiny navicular accessory ossicle. No other bony, articular, or soft tissue abnormalities.
--- NOTE | 2023-04-09 21:02 | XRAY ---
Indication: Pain following injury. Comparison: None 3 nonweightbearing views left foot demonstrates tiny plantar heel spur and tiny navicular accessory ossicle. No other bony, articular, or soft tissue abnormalities.
== END 2023-04-09 15:26 | disposition home or self-care (01) ==
LOC: ED 14:35
DX: S90.32XA Contusion of left foot, initial encounter (principal); W22.03XA Walked into furniture, initial encounter; Y92.230 Patient room in hospital as the place of occurrence of the external cause; Z79.899 Other long term (current) drug therapy
CPT/HCPCS: 73610; 73630; 99282